=== PATIENT | female | born 1950 | race Caucasian/White ===

== ENCOUNTER 2019-11-01 02:21 | Outpatient (RCR) | payer MEDICARE, MEDICAID, SELFPAY | END 2019-11-05 23:59 | disposition home or self-care (01) | LOC: INF 02:21 | PROVIDERS: PCP Registered Nurse; Visit Provider Internal Medicine Hematology & Oncology | DX: R69 Illness, unspecified (principal) ==

== ENCOUNTER 2019-11-15 08:26 | Outpatient (RCR) | payer MEDICARE, MEDICAID, SELFPAY | END 2019-12-05 23:59 | disposition home or self-care (01) | LOC: INF 08:26 | PROVIDERS: PCP Registered Nurse; Visit Provider Internal Medicine Hematology & Oncology | DX: R69 Illness, unspecified (principal) ==

== ENCOUNTER 2021-03-14 02:32 | Outpatient (CLI) | payer MEDICARE, MEDICAID, SELFPAY ==
[2021-03-14 11:36] LABS: Source Nasal/Nares
[2021-03-14 15:24] LABS: COVID-19 PCR Negative (Negative)
== END 2021-03-14 02:33 | disposition home or self-care (01) ==
LOC: LBO 02:32
PROVIDERS: PCP Registered Nurse; Visit Provider Ophthalmology
DX: Z20.822 Contact with and (suspected) exposure to COVID-19 (principal); Z01.818 Encounter for other preprocedural examination
CPT/HCPCS: 87635

== ENCOUNTER 2021-03-17 07:29 | Day surgery (SDC) | payer MEDICARE, MEDICAID, SELFPAY ==
[2021-03-17] MEDS: Tropicam./Phenyleph. (1/2.5%) 5 ML BTL OD ×3 (08:00→08:16)
[2021-03-17 08:01] VITALS: BP 150/90; PULSE 95; RESP 16; TEMP 36.5; O2SAT 95
--- NOTE | 2021-03-17 08:36 | W.ANESPRE ---
General Info Date of Service Date Performed: 03/17/21 Height: 5 ft 1 in Weight: 82.5 kg Body Mass Index (BMI): 34.3 Surgical Procedure: Operation Date: 03/17/21 10:10 Proposed Procedures Side Surgeon p Cataract Extraction with IOL Implant Right Victoriano Alexander MD Meds Allergies and Home Medications Allergies Allergy/AdvReac Type Severity Reaction Status Date / Time bleomycin Allergy Intermediate Other (See Unverified 03/17/21 07:55 Comment) grass pollen Allergy Intermediate Other (See Unverified 03/17/21 07:55 Comment) Home Medication Medication Instructions Recorded aspirin 81 mg PO DAILY 03/12/21 capsaicin 1 applic TOPICAL TID 03/12/21 cholecalciferol (vitamin D3) 50 mcg PO DAILY 03/12/21 [Vitamin D3] lisinopril 5 mg PO DAILY 03/12/21 loratadine 10 mg PO DAILY 03/12/21 magnesium oxide 400 mg PO DAILY 03/12/21 metformin 1,000 mg PO BID 03/12/21 metoprolol succinate 25 mg PO DAILY 03/12/21 pantoprazole 40 mg PO DAILY 03/12/21 triamcinolone acetonide 1 applic TOPICAL BID PRN 03/12/21 cyanocobalamin (vitamin B-12) 1,000 mcg PO DAILY 03/17/21 [Vitamin B-12] Current Visit Medications: Current Medications Generic Name Dose Route Start Last Admin Trade Name Freq PRN Reason Stop Dose Admin Acetaminophen 1,000 mg 03/17/21 06:00 Acetaminophen 500 Mg Tab PO Q4H PRN PRN Miscellaneous Medication 0 ml 03/17/21 06:00 Prednisolone 1%, Moxifloxacin 0.5%, Nepafenac 0.1% 5ml Btl OD DIRECTED FORMERLY [facility], 1928–1983 Miscellaneous Medication 0 ml 03/17/21 06:00 03/17/21 08:16 Tropicam./Phenyleph. (1/2.5%) 5 Ml Btl OD 1 drp DIRECTED FELICIA Administration Tetracaine HCl 0 ml 03/17/21 06:00 Tetracaine 0.5% 4 Ml Btl OD DIRECTED FELICIA PFSH Active Problems Active Problems: Problem Status Onset Code Abnormal PET scan of head R94.02 Hard palate ulcer K12.1 Nuclear sclerotic cataract of left eye H25.12 Cortical cataract of left eye H26.9 Posterior subcapsular age-related cataract of left eye H25.042 Medical History Medical History Ataxic gait pt. states this was after her her chemotherapy, but has since returned to normal she now uses a cane for stability (last dose 02/08/20) Benign essential HTN Eczema Edema Edema of lower extremity GERD (gastroesophageal reflux disease) Hodgkin's disease, nodular sclerosis Idiopathic osteoarthritis Increased frequency of urination Mixed hyperlipidemia Mood disorder Obesity Type 2 diabetes mellitus Surgical History Surgical History (Updated 03/17/21 @ 07:54 by Tracy Garnett) Hx of lymph node biopsy Hx of tubal ligation Tobacco Smoking/Tobacco Use Status: Former Tobacco Use Alcohol Alcohol Intake: never Substance Use Substance use: Never Substance use type: does not use Vital Signs and Lab Results Vital Signs Most Recent Vital Signs in EMR: Most Recent Vital Signs Temp Pulse Resp BP Pulse Ox 36.5 C 95 H 16 150/90 H 95 03/17/21 08:01 03/17/21 08:01 03/17/21 08:01 03/17/21 08:01 03/17/21 08:01 Lab Results Blood Type / Crossmatch: No Data to Display Complete Blood Count: No Data to Display Complete Metabolic Panel: No Data to Display Liver Function Panel: No Data to Display Coagulation Panel: No Data to Display Cardiac Panel: No Data to Display Arterial Blood Gas: No Data to Display Venous Blood Gas: No Data to Display Pancreas Panel: No Data to Display Thyroid Panel: No Data to Display Infectious Disease: Coronavirus (COVID-19)(PCR) Negative (Negative) 03/14/21 09:31 03/14/21 Coronavirus 2019 Source Nasal/Nares 03/14/21 09:31 03/14/21 Blood Cultures: No Data to Display Toxicology Panel: No Data to Display Anesthesia Assessment and Plan Anesthesia History Personal History: No History of Anesthesia Complications Family History: No Family History of Anesthesia Complications Exercise Tolerance Exercise Tolerance: Metabolic Equivalents>4 Pertinent Negatives Pertinent Negatives: No Symptoms of GERD, No Major Cardiovascular Symptoms or Complaints, No Major Pulmonary Symptoms or Complaints and No History of CVA/TIA Cardiac & Pulmonary Exam Cardiac Exam: Normal S1/S2 Heart Sounds Pulmonary Exam: Clear Bilateral Breath Sounds Airway Exam Known Difficult Airway: No Mallampati Class: 3 Mouth Opening: Normal (> 3cm) Thyromental Distance: Less than 3 cm Neck Range of Motion: Limited ROM Neck Circumference: Thick Teeth Condition: Removable Dentures/Plates Upper ASA Classification ASA Score: ASA 3 Emergency Case?: No NPO Status NPO Status: NPO Clears >2 hours, Solids >8 hours Anesthesia Plan Resuscitation Status: Full Code Anesthesia Technique: MAC Anesthesia Airway Planned: Natural Airway Monitors Used: Standard Monitors
[2021-03-17 08:38] VITALS: BMI 34.3
--- NOTE | 2021-03-17 08:53 | W.ANESPOSTOP ---
Postoperative Evaluation Date, Time and Location Date Performed: 03/17/21 Time Performed: 08:53 Patient Location: Day Surgery Unit Vital Signs Most Recent Imported Vital Signs: Most Recent Vital Signs Temp Pulse Resp BP Pulse Ox 36.5 C 95 H 16 150/90 H 95 03/17/21 08:01 03/17/21 08:01 03/17/21 08:01 03/17/21 08:01 03/17/21 08:01 Most Recent Manually Entered Vital Signs: Adult Blood Pressure: 128/86 Heart Rate: 76 Respirations: 12 Oxygen Saturation (%): 98 Temperature (C): 36.3 C Pain Score (0-10 Scale): 0 Pain Score Most Recent Pain Score: Most Recent Pain Score Pain Level 0 03/17/21 08:01 Assessment Mental Status: Awake (Alert & Oriented to Patient Baseline) Airway and Respiratory Function: Patent airway with normal (patient baseline) respiratory exam Cardiovascular Function: Hemodynamically Stable Hydration Status: Adequately Hydrated Nausea & Vomiting: No Nausea or Vomiting Pain: Pt. Denies Any Pain Peripheral Nerve Block: Patient did not receive a nerve block
[2021-03-17 08:54] VITALS: BP 128/86; PULSE 76; RESP 12; TEMPC 36.3; O2SAT 98
[2021-03-17] MEDS: Duovisc Viscoelastic System EACH 1 EACH (09:20)
[2021-03-17] MEDS: Balanced Salt Soln.-PLUS 500 ML BAG (09:20)
[2021-03-17] MEDS: Povidone-Iodine Ophth 30 ML BTL (09:20)
[2021-03-17] MEDS: Lidocaine 1% Pres-Free 5 ML VIAL (09:20)
[2021-03-17] MEDS: Tetracaine 0.5% 4 ML BTL OD (09:20)
[2021-03-17] MEDS: Lidocaine 2% Jelly 6 ML SYR (09:20)
[2021-03-17 09:34] VITALS: BP 122/82; PULSE 85; RESP 20; TEMP 36; O2SAT 94
--- NOTE | 2021-03-17 09:34 | W.ANESPOSTOP ---
Postoperative Evaluation Date, Time and Location Date Performed: 03/17/21 Time Performed: 09:34 Patient Location: Day Surgery Unit Vital Signs Most Recent Imported Vital Signs: Most Recent Vital Signs Temp Pulse Resp BP Pulse Ox 36.5 C 95 H 16 150/90 H 95 03/17/21 08:01 03/17/21 08:01 03/17/21 08:01 03/17/21 08:01 03/17/21 08:01 Most Recent Vital Signs Temp Pulse Resp BP Pulse Ox 36.5 C 95 H 16 150/90 H 95 03/17/21 08:01 03/17/21 08:01 03/17/21 08:01 03/17/21 08:01 03/17/21 08:01 Most Recent Manually Entered Vital Signs: Adult Blood Pressure: 122/82 Heart Rate: 86 Respirations: 12 Oxygen Saturation (%): 94 Temperature (C): 36.1 C Pain Score (0-10 Scale): 0 Pain Score Most Recent Pain Score: Most Recent Pain Score Pain Level 0 03/17/21 08:01 Assessment Mental Status: Awake (Alert & Oriented to Patient Baseline) Airway and Respiratory Function: Patent airway with normal (patient baseline) respiratory exam Cardiovascular Function: Hemodynamically Stable Hydration Status: Adequately Hydrated Nausea & Vomiting: No Nausea or Vomiting Pain: Pt. Denies Any Pain Peripheral Nerve Block: Patient did not receive a nerve block
[2021-03-17 09:35] VITALS: BP 122/82; PULSE 86; RESP 12; TEMPC 36.1; O2SAT 94
--- NOTE | 2021-03-17 09:35 | W.PM.DSUDISC ---
Discharge Plan Disposition Patient Disposition: HOME Condition: Good Discharge Details Attending Provider: Victoriano Alexander Primary Care Provider: Luna Whiteside Home Meds and New Rx's Prescriptions: No Action triamcinolone acetonide 0.1 % Cream 1 applic TOPICAL BID PRNRF: 0 aspirin 81 mg Capsule,Delayed Release(Dr/Ec) 81 mg PO DAILY RF: 0 pantoprazole 40 mg Tablet,Delayed Release (Dr/Ec) 40 mg PO DAILY RF: 0 capsaicin 0.025 % Cream 1 applic TOPICAL TID RF: 0 lisinopril 5 mg Tablet 5 mg PO DAILY RF: 0 metoprolol succinate 25 mg Tablet Extended Release 24 Hr 25 mg PO DAILY RF: 0 metformin 500 mg Tablet Extended Release 24 Hr 1,000 mg PO BID RF: 0 loratadine 10 mg Tablet 10 mg PO DAILY RF: 0 cholecalciferol (vitamin D3) [Vitamin D3] 50 mcg (2,000 unit) Capsule 50 mcg PO DAILY RF: 0 magnesium oxide 400 mg magnesium Tablet 400 mg PO DAILY RF: 0 cyanocobalamin (vitamin B-12) [Vitamin B-12] 1,000 mcg Tablet 1,000 mcg PO DAILY RF: 0 Discharge Instructions Stand Alone Forms: Post-op Topical Cataract, Lashae Beltran (DSU) Discharge Orders Discharge Orders: Discharge Order (Routine); Ordered 03/17/21 Ordered By: Victoriano Alexander DS: Diagnosis Discharge Diagnosis (1) Nuclear sclerotic cataract of right eye: Status: Resolved (2) Posterior subcapsular age-related cataract, right eye: Status: Resolved
--- NOTE | 2021-03-17 09:38 | ROE_ITS ---
Date of service: 03/17/21 Time of Service: 09:38 Operative Note Operative Note DATE OF PROCEDURE: 03/17/21 PRE-OP DIAGNOSIS: Nuclear/posterior subcapsular cataract, right eye POST-OP DIAGNOSIS: same PROCEDURE: Cataract extraction using phacoemulsification with intraocular lens implant, right eye SURGEON: Victoriano Alexander ANESTHESIA TYPE: Local By Surgeon and MAC Refer to Anesthesia Record ESTIMATED BLOOD LOSS: 0 PATHOLOGY: none sent COMPLICATIONS: None Patient was transported to: same day Patient's condition: stable Implants: [employer]/ALMA DELIA Tecnis [id number] Indications: Progressive visual loss due to cataract, right eye Procedure Description: CATARACT SURGERY OPERATIVE REPORT PREOPERATIVE DIAGNOSIS: 1. Nuclear/posterior subcapsular cataract, right eye POSTOPERATIVE DIAGNOSIS: Same OPERATION: 1. Cataract extraction using phacoemulsification with posterior chamber intraocular lens implant, right eye. 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: [employer] Ma[employer]ick / ALMA DELIA Tecnis [id number] IOL Power: + +15.5 diopters diopters IOL Serial Number: [id number] Optic Diameter: 6.0mm Haptic/Overall Diameter: 13.0mm PHACO INFO: Rachid Flexenclosureurion Vision System with OZil and Active Fluidics Cumulative Dispersed Energy (CDE): 9.02 seconds SURGEON: Victoriano Alexander MD, ELYSE ANESTHESIA: Monitored Anesthesia Care (MAC), with local sub-tenon's anesthetic infiltration COMPLICATIONS: None SPECIMENS: None INDICATIONS FOR PROCEDURE: The patient is a 70-year-old lady with history of diminished visual acuity in her right eye secondary to the development of nuclear and posterior subcapsular cataract. The option of cataract surgery was offered to the patient and she felt she was symptomatic enough that she wished to proceed. PROCEDURE: The correct surgical eye was identified and marked as the right eye and the pupil was dilated in the preoperative area using mydriatics and cycloplegics. The dilated pupil size was 7.0 mm. Oral sedation was administered in the form of an Imprimis MKO Melt (midazolam 3mg/ketamine 25mg/ondansetron 2mg). The patient was brought to the operating room where cardiopulmonary monitoring was instituted and surgical time-out was performed, confirming the correct operative eye and IOL power. Topical anesthesia was administered and ophthalmic povidone-iodine 5% was instilled into the conjunctival fornices. Lidocaine gel was applied to the cornea and the trent-ocular area was prepped with Betadine 10% solution and draped in the usual sterile fashion for intraocular surgery, including an aperture drape. A Tegaderm transparent film dressing was cut in half and used to cover the lashes and lid margins. Care was taken to sequester the lashes and lid margins under the Tegaderm dressing. A lid speculum was placed between the lids of the operative eye and the Dexter-Mark operating microscope was maneuvered into position. Matthias scissors were then used to make a conjunctival buttonhole approximately 6mm posterior to the limbus in the inferonasal quadrant. Blunt dissection was carried out to expose bare sclera, and a blunt-tipped sub-tenon?s anesthesia cannula was introduced and passed posteriorly along the globe where non- preserved plain lidocaine was injected into posterior sub-Tenon?s space. A sideport knife was used to make a paracentesis port inferotemporally. Intraocular phenylephrine/lidocaine was injected into the anterior chamber. The anterior chamber was filled with viscoelastic. A 2.4mm keratome knife was used to create a half-thickness groove at the limbus and then to construct a three- plane near-clear corneal tunnel extending 2.0mm into clear cornea superiortempo rally. A flap was raised on the anterior capsule and capsulorhexis forceps were used to complete a continuous curvilinear capsulorhexis of 5.0 mm. Balanced salt solution was then used to perform cortical cleaving hydrodissection and nuclear hydrodelineation until the lens could be freely rotated within the capsular bag. The lens nucleus was then disassembled and removed within the capsular bag and iris plane using phacoemulsification. Residual cortical material was removed using the I/A handpiece. The posterior capsule was carefully polished to remove as much residual lens epithelial cells as safely possible. The capsular bag was then inflated and the anterior chamber deepened with viscoelastic. The lens implant described above was inserted into the capsular bag using the ALMA DELIA [place] Injector. A Kuglen hook was used to dial the IOL into position. Residual viscoelastic was then removed first from posterior to the IOL, then from the anterior chamber using the I/A handpiece. The lens implant was noted to center nicely within the capsular bag. The incisions were stromally hydrated, and the anterior chamber was reformed using BSS. Then 0.5cc of moxifloxacin 1.0mg/ml were injected into the capsular bag and anterior chamber. The incisions were checked with a Weck spear and found to be secure. Several drops of ophthalmic povidone-iodine 5% were then applied to the eye followed by two drops of Imprimis combination prednisolone/moxifloxacin/nepafenac solution. The drapes were removed and a clear plastic protective eye shield was placed over the eye. The patient was then returned to Same Day Surgery in stable condition.
[2021-03-17 09:58] VITALS: BP 125/90; PULSE 86; RESP 18; TEMP 36.3; O2SAT 95
== END 2021-03-17 10:19 | disposition home or self-care (01) ==
PROVIDERS: PCP Registered Nurse; Visit Provider Ophthalmology
PROC: (CPT 66984; principal; 2021-03-17 10:00)
DX: H25.041 Posterior subcapsular polar age-related cataract, right eye (principal); I10 Essential (primary) hypertension; E11.9 Type 2 diabetes mellitus without complications
CPT/HCPCS: 66984; V2632

== ENCOUNTER 2021-03-28 01:47 | Outpatient (CLI) | payer MEDICARE, MEDICAID, SELFPAY ==
[2021-03-28 16:11] LABS: Source Nasal/Nares
[2021-03-28 21:17] LABS: COVID-19 PCR Negative (Negative)
== END 2021-03-28 01:48 | disposition home or self-care (01) ==
LOC: LBO 01:47
PROVIDERS: PCP Registered Nurse; Visit Provider Ophthalmology
DX: Z20.822 Contact with and (suspected) exposure to COVID-19 (principal); Z01.818 Encounter for other preprocedural examination
CPT/HCPCS: 87635

== ENCOUNTER 2021-03-31 07:40 | Day surgery (SDC) | payer MEDICARE, MEDICAID, SELFPAY ==
--- NOTE | 2021-03-31 07:52 | W.ANESPRE ---
General Info Date of Service Date Performed: 03/31/21 Height: 5 ft 1 in Weight: 82.5 kg Body Mass Index (BMI): 34.3 Surgical Procedure: Operation Date: 03/31/21 09:40 Proposed Procedures Side Surgeon p Cataract Extraction with IOL Implant Left Victoriano Alexander MD Meds Allergies and Home Medications Allergies Allergy/AdvReac Type Severity Reaction Status Date / Time bleomycin Allergy Intermediate Other (See Unverified 03/31/21 07:54 Comment) grass pollen Allergy Intermediate Other (See Unverified 03/31/21 07:54 Comment) Home Medication Medication Instructions Recorded aspirin 81 mg PO DAILY 03/12/21 capsaicin 1 applic TOPICAL TID 03/12/21 cholecalciferol (vitamin D3) 50 mcg PO DAILY 03/12/21 [Vitamin D3] lisinopril 5 mg PO DAILY 03/12/21 loratadine 10 mg PO DAILY 03/12/21 magnesium oxide 400 mg PO DAILY 03/12/21 metformin 1,000 mg PO BID 03/12/21 metoprolol succinate 25 mg PO DAILY 03/12/21 triamcinolone acetonide 1 applic TOPICAL BID PRN 03/12/21 cyanocobalamin (vitamin B-12) 1,000 mcg PO DAILY 03/17/21 [Vitamin B-12] Current Visit Medications: Current Medications Generic Name Dose Route Start Last Admin Trade Name Freq PRN Reason Stop Dose Admin Acetaminophen 1,000 mg 03/31/21 06:00 Acetaminophen 500 Mg Tab PO Q4H PRN PRN Miscellaneous Medication 0 ml 03/31/21 06:00 Prednisolone 1%, Moxifloxacin 0.5%, Nepafenac 0.1% 5ml Btl OS DIRECTED FELICIA Miscellaneous Medication 0 ml 03/31/21 06:00 Tropicam./Phenyleph. (1/2.5%) 5 Ml Btl OS DIRECTED FELICIA Tetracaine HCl 0 ml 03/31/21 06:00 Tetracaine 0.5% 4 Ml Btl OS DIRECTED FELICIA PFSH Active Problems Active Problems: Problem Status Onset Code Posterior subcapsular age-related cataract, right eye H25.041 Nuclear sclerotic cataract of right eye H25.11 Abnormal PET scan of head R94.02 Hard palate ulcer K12.1 Nuclear sclerotic cataract of left eye H25.12 Cortical cataract of left eye H26.9 Posterior subcapsular age-related cataract of left eye H25.042 Medical History Medical History Ataxic gait pt. states this was after her her chemotherapy, but has since returned to normal she now uses a cane for stability (last dose 02/08/20) Benign essential HTN Eczema Edema Edema of lower extremity GERD (gastroesophageal reflux disease) Hodgkin's disease, nodular sclerosis Idiopathic osteoarthritis Increased frequency of urination Mixed hyperlipidemia Mood disorder Obesity Type 2 diabetes mellitus Surgical History Surgical History (Updated 03/31/21 @ 07:54 by Eduardo Flores) Hx of cholecystectomy Hx of lymph node biopsy Hx of tubal ligation Tobacco Smoking/Tobacco Use Status: Former Tobacco Use Alcohol Alcohol Intake: never Substance Use Substance use: Never Substance use type: does not use Vital Signs and Lab Results Lab Results Blood Type / Crossmatch: No Data to Display Complete Blood Count: No Data to Display Complete Metabolic Panel: No Data to Display Liver Function Panel: No Data to Display Coagulation Panel: No Data to Display Cardiac Panel: No Data to Display Arterial Blood Gas: No Data to Display Venous Blood Gas: No Data to Display Pancreas Panel: No Data to Display Thyroid Panel: No Data to Display Infectious Disease: Coronavirus (COVID-19)(PCR) Negative (Negative) 03/28/21 09:54 03/28/21 Coronavirus 2019 Source Nasal/Nares 03/28/21 09:54 03/28/21 Blood Cultures: No Data to Display Toxicology Panel: No Data to Display Anesthesia Assessment and Plan Anesthesia History Personal History: No History of Anesthesia Complications Family History: No Family History of Anesthesia Complications Exercise Tolerance Exercise Tolerance: Metabolic Equivalents>4 Pertinent Negatives Pertinent Negatives: No Symptoms of GERD Cardiac & Pulmonary Exam Cardiac Exam: Normal S1/S2 Heart Sounds Pulmonary Exam: Clear Bilateral Breath Sounds Airway Exam Known Difficult Airway: No Mallampati Class: 3 Mouth Opening: Normal (> 3cm) Thyromental Distance: Less than 3 cm Neck Range of Motion: Limited ROM Neck Circumference: Thick Teeth Condition: Removable Dentures/Plates Upper ASA Classification ASA Score: ASA 3 Emergency Case?: No NPO Status NPO Status: NPO Clears >2 hours, Solids >8 hours Anesthesia Plan Resuscitation Status: Full Code Anesthesia Technique: MAC Anesthesia Airway Planned: Natural Airway Monitors Used: Standard Monitors
[2021-03-31 07:58] VITALS: BP 147/87; PULSE 95; RESP 16; TEMP 36.7; O2SAT 95
[2021-03-31 08:02] VITALS: BMI 34.3
[2021-03-31] MEDS: Tropicam./Phenyleph. (1/2.5%) 5 ML BTL OS ×3 (08:09→08:21)
--- NOTE | 2021-03-31 08:22 | W.ANESPOSTOP ---
Postoperative Evaluation Date, Time and Location Date Performed: 03/31/21 Time Performed: 08:22 Patient Location: Day Surgery Unit Vital Signs Most Recent Imported Vital Signs: Most Recent Vital Signs Temp Pulse Resp BP Pulse Ox 36.7 C 95 H 16 147/87 H 95 03/31/21 07:58 03/31/21 07:58 03/31/21 07:58 03/31/21 07:58 03/31/21 07:58 Pain Score Most Recent Pain Score: Most Recent Pain Score Pain Level 0 03/31/21 07:58 Assessment Mental Status: Awake (Alert & Oriented to Patient Baseline) Airway and Respiratory Function: Patent airway with normal (patient baseline) respiratory exam Cardiovascular Function: Hemodynamically Stable Hydration Status: Adequately Hydrated Nausea & Vomiting: No Nausea or Vomiting Pain: Pt. Denies Any Pain Peripheral Nerve Block: Patient did not receive a nerve block
[2021-03-31] MEDS: Lidocaine 2% Jelly 6 ML SYR (10:34)
[2021-03-31] MEDS: Tetracaine 0.5% 4 ML BTL OS (10:36)
[2021-03-31] MEDS: Povidone-Iodine Ophth 30 ML BTL (10:37)
[2021-03-31] MEDS: Balanced Salt Soln.-PLUS 500 ML BAG (10:43)
[2021-03-31] MEDS: Duovisc Viscoelastic System EACH 1 EACH (10:43)
[2021-03-31] MEDS: Lidocaine 1% Pres-Free 5 ML VIAL (10:44)
--- NOTE | 2021-03-31 11:00 | W.PM.DSUDISC ---
Discharge Plan Disposition Patient Disposition: HOME Condition: Good Discharge Details Attending Provider: Victoriano Alexander Primary Care Provider: Luna Whiteside Home Meds and New Rx's Prescriptions: No Action triamcinolone acetonide 0.1 % Cream 1 applic TOPICAL BID PRNRF: 0 aspirin 81 mg Capsule,Delayed Release(Dr/Ec) 81 mg PO DAILY RF: 0 capsaicin 0.025 % Cream 1 applic TOPICAL TID RF: 0 lisinopril 5 mg Tablet 5 mg PO DAILY RF: 0 metoprolol succinate 25 mg Tablet Extended Release 24 Hr 25 mg PO DAILY RF: 0 metformin 500 mg Tablet Extended Release 24 Hr 1,000 mg PO BID RF: 0 loratadine 10 mg Tablet 10 mg PO DAILY RF: 0 cholecalciferol (vitamin D3) [Vitamin D3] 50 mcg (2,000 unit) Capsule 50 mcg PO DAILY RF: 0 magnesium oxide 400 mg magnesium Tablet 400 mg PO DAILY RF: 0 cyanocobalamin (vitamin B-12) [Vitamin B-12] 1,000 mcg Tablet 1,000 mcg PO DAILY RF: 0 Discharge Instructions Stand Alone Forms: Post-op Topical Cataract, Lashae Beltran ([facility]) Discharge Orders Discharge Orders: Discharge Order (Routine); Ordered 03/31/21 Ordered By: Victoriano Alexander DS: Diagnosis Discharge Diagnosis (1) Posterior subcapsular age-related cataract of left eye: Status: Resolved (2) Cortical cataract of left eye: Status: Resolved (3) Nuclear sclerotic cataract of left eye: Status: Resolved
[2021-03-31 11:01] VITALS: BP 121/73; PULSE 81; RESP 18; TEMP 36.4; O2SAT 94
--- NOTE | 2021-03-31 11:01 | W.PM.OP ---
Date of service: 03/31/21 Time of Service: 11:01 Operative Note Operative Note DATE OF PROCEDURE: 03/31/21 PRE-OP DIAGNOSIS: Nuclear/cortical/posterior subcapsular cataract, left eye POST-OP DIAGNOSIS: same PROCEDURE: Cataract extraction using phacoemulsification with intraocular lens implant, left eye SURGEON: Victoriano Alexander ANESTHESIA TYPE: Local By Surgeon and MAC Refer to Anesthesia Record PATHOLOGY: none sent COMPLICATIONS: None Patient was transported to: same day Patient's condition: stable Implants: [employer] Tecnis [id number] Indications: Progressive decreased vision due to cataract, left eye Procedure Description: CATARACT SURGERY OPERATIVE REPORT PREOPERATIVE DIAGNOSIS: 1. Nuclear/cortical/posterior subcapsular cataract, left eye POSTOPERATIVE DIAGNOSIS: Same OPERATION: 1. Cataract extraction using phacoemulsification with posterior chamber intraocular lens implant, left eye. 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 She has already undergone cataract surgery in the right eye and is doing well postoperatively. She now presents for cataract surgery in the left eye. PROCEDURE: The correct surgical eye was identified and marked as the left eye and the pupil was dilated in the preoperative area using mydriatics and cycloplegics. The dilated pupil size was 7.0 mm. Oral sedation was administered in the form of an Imprimis MKO Melt (midazolam 3mg/ketamine 25mg/ondansetron 2mg). The patient was brought to the operating room where cardiopulmonary monitoring was instituted and surgical time-out was performed, confirming the correct operative eye and IOL power. Topical anesthesia was administered and ophthalmic povidone-iodine 5% was instilled into the conjunctival fornices. Lidocaine gel was applied to the cornea and the trent-ocular area was prepped with Betadine 10% solution and draped in the usual sterile fashion for intraocular surgery, including an aperture drape. A Tegaderm transparent film dressing was cut in half and used to cover the lashes and lid margins. Care was taken to sequester the lashes and lid margins under the Tegaderm dressing. A lid speculum was placed between the lids of the operative eye and the Dexter-Mark operating microscope was maneuvered into position. Matthias scissors were then used to make a conjunctival buttonhole approximately 6mm posterior to the limbus in the inferonasal quadrant. Blunt dissection was carried out to expose bare sclera, and a blunt-tipped sub-tenon?s anesthesia cannula was introduced and passed posteriorly along the globe where non-preserved plain lidocaine was injected into posterior sub-Tenon?s space. A sideport knife was used to make a paracentesis port superiorly/superiortemporally. Intraocular phenylephrine/lidocaine was injected int the anterior chamber.. The anterior chamber was filled with viscoelastic. A 2.4mm keratome knife was used to create a half-thickness groove at the limbus and then to construct a three-plane near-clear corneal tunnel extending 2.0mm into clear cornea at the 3:00 position. A flap was raised on the anterior capsule and capsulorhexis forceps were used to complete a continuous curvilinear capsulorhexis of 5.5 mm. Balanced salt solution was then used to perform cortical cleaving hydrodissection and nuclear hydrodelineation until the lens could be freely rotated within the capsular bag. The lens nucleus was then disassembled and removed within the capsular bag and iris plane using phacoemulsification. Residual cortical material was removed using the 45-degree angled silicone I/A tip with 0.3mm port. The posterior capsule was carefully polished to remove as much residual lens epithelial cells as safely possible. The capsular bag was then inflated and the anterior chamber deepened with viscoelastic. The lens implant described above was inserted into the capsular bag using the ALMA DELIA Marshall Injector. A Kuglen hook was used to dial the IOL into position. Residual viscoelastic was then removed first from posterior to the IOL, then from the anterior chamber using the I/A handpiece. The lens implant was noted to center nicely within the capsular bag. The incisions were stromally hydrated, and the anterior chamber was reformed using BSS. Then 0.5cc of moxifloxacin 1.0mg/ml were injected into the capsular bag and anterior chamber. The incisions were checked with a Weck spear and found to be secure. Several drops of ophthalmic povidone-iodine 5% were then applied to the eye followed by two drops of Imprimis combination prednisolone/moxifloxacin/nepafenac solution. The drapes were removed and a clear plastic protective eye shield was placed over the eye. The patient was then returned to [facility] in stable condition.
[2021-03-31 11:28] VITALS: BP 115/74; PULSE 81; RESP 18; TEMP 36.2; O2SAT 94
== END 2021-03-31 11:39 | disposition home or self-care (01) ==
PROVIDERS: PCP Registered Nurse; Visit Provider Ophthalmology
PROC: (CPT 66984; principal; 2021-03-31 09:30)
DX: H25.042 Posterior subcapsular polar age-related cataract, left eye (principal); E11.9 Type 2 diabetes mellitus without complications; E78.2 Mixed hyperlipidemia; I10 Essential (primary) hypertension; K21.9 Gastro-esophageal reflux disease without esophagitis; C81.10 Nodular sclerosis Hodgkin lymphoma, unspecified site
CPT/HCPCS: 66984; V2632